=== PATIENT | male | born 1980 | race Caucasian/White ===

== ENCOUNTER 2021-07-24 14:36 | Emergency (ER) | payer BC, SELFPAY ==
[2021-07-24 15:15] VITALS: PULSE 106; RESP 22; TEMP 37.4; O2SAT 100; BMI 16.5
--- NOTE | 2021-07-24 15:48 | HMH.EDUTC ---
[facility] Disposition Clinical Impression: Sinusitis Qualifiers: Sinusitis location: unspecified location Chronicity: unspecified Qualified Code(s): J32.9 - Chronic sinusitis, unspecified Disposition: Home, Self-Care Condition on Discharge: Good Instructions: Sinusitis, DI for Sinusitis, DI for COVID-19 (Suspected or Confirmed ), Preventing the Spread of Coronavirus Discharge Instructions Additional Instructions: *Monitor Temp, Over the counter Motrin or Tylenol as directed/as needed Tylenol every 4 hours and Motrin every 6 hours (as long as your family doctor has told you that you can take it) for fever or pain. and straight to ER if unable to lower temp less than 101.0 after medication given *Warm salt water gargles may help to soothe the throat *Throat Lozenges *Warm fluids like tea with honey may help to soothe the throat *Sleep elevated *Humidifier/Vaporizer *Flonase 2 sprays in each nostril daily but be aware that it may take 2-3 days before you notice improvement Follow up IMMEDIATELY for new or worsening symptoms or no Noticeable improvement over the next 48-72 hours. 911 for difficulty breathing or swallowing You were tested for today for COVID19 your test result should be back in the next 24-48 hours, you may check your results on the [facility] My health portal if you have trouble logging on or seeing your results you may call You was given a handout with instructions for Self Quarantine and Self isolation for while you wait on test results and what to do if they are positive If you are positive the Health Dept will be contacting you also Make sure to take your Vitamins Vit. C Vit D and Zinc if you can take them Prescriptions: Fluticasone Propionate [Flonase 50mcg nasal spray 16gm] 1 spr NS DAILY #1 each Transmission Status: Pending to [facility] methylPREDNISolone [Medrol 4mg tab] 4 mg PO DIRECTED #21 tab Transmission Status: Pending to [facility] Azithromycin [Z-Charlie 250mg Tab] 250 mg PO DIRECTED #6 tab Transmission Status: Pending to [facility] Referrals: Karl Davis MD [Primary Care Provider] - As needed Forms: Work/School Release Time of Disposition: 15:52 Medical Decision Making - Juan Inquiry Pt receiving controlled substance: No Juan was queried for this patient: No Vital Signs: 07/24/21 15:15 Temperature 99.4 F Temperature Source Oral Pulse Rate [Right] 106 H Respiratory Rate 22 02 Sat by Pulse Oximetry 100 Oxygen Delivery Method Room Air Orders (Tests/Meds): ORDERS Category Date Time Status Covid-19 Nasal PCR ([facility]) Routine Lab 07/24/21 15:15 Received [facility] HPI - General Stated complaint: chills fever aches congestion smell of metal Time Seen by Provider: 07/24/21 15:48 Mode of Arrival: Ambulatory Source of Information: Patient Limitations: No Limitations Description of Symptoms (Recalled from Triage Doc. by RN): PATIENT C/O CHILLS, BODY ACHES, CONGESTION HEENT Symptoms (Recalled from RN notes): No Resp Symptoms (Recalled from RN notes): No Skin Symptoms (Recalled from RN notes): No MS Symptoms (Recalled from RN notes): No Functional Status (Recalled from RN notes): WNL - History of Present Illness Provider Complaint: Patient states that he has been having body aches, chills, headache sinus pain and pressure along with scratchy irritated throat State that today he was feeling worse and felt like the pressure was getting worse behind his eyes so he came in to get checked - Related Data Previous Rx's Medication Instructions Recorded Azithromycin [Z-Charlie 250mg Tab] 250 mg PO DIRECTED #6 tab 07/24/21 Fluticasone Propionate [Flonase 1 spr NS DAILY #1 each 07/24/21 50mcg nasal spray 16gm] methylPREDNISolone [Medrol 4mg 4 mg PO DIRECTED #21 tab 07/24/21 tab] Allergies Allergy/AdvReac Type Severity Reaction Status Date / Time No Known Allergies Allergy Verified 07/24/21 15:41 - Worker's Comp Is this a
[2021-07-24 15:51] VITALS: BP 0/0; PULSE 106; RESP 22; TEMP 37.4; O2SAT 100
== END 2021-07-24 16:01 | disposition home or self-care (01) ==
PROVIDERS: Emergency Provider Nurse Practitioner; PCP Family Medicine
DX: U07.1 COVID-19 (principal); J32.9 Chronic sinusitis, unspecified
CPT/HCPCS: 99202; C9803; G0463; U0003; U0005

== ENCOUNTER → 2022-12-18 11:00 | Outpatient (CLI) | payer BC, SELFPAY ==
[2022-12-18 11:50] LABS: Basophils # 0.1 K/mm3 (0-0.2); Basophils % 0.9 % (0.1-2.0); Eosinophils # 0.1 K/mm3 (0.0-0.4); Eosinophils % 2.2 % (0.1-12.0); Hematocrit 47.3 % (42.0-52.0); Hemoglobin 14.9 g/dL (14.1-18.0); Lymphocytes % 37.7 % (10-50); Mean Corpuscular HGB Conc 31.4 g/dL (31.8-35.4); Mean Corpuscular Hemoglobin 28.2 pg (27.0-31.2); Mean Corpuscular Volume 89.6 fl (80-94); Mean Platelet Volume 7.2 fl (7.4-10.4); Monocytes # 0.3 K/mm3 (0.1-1.0); Monocytes % 6.4 % (1.7-9.3); Neutrophils # 2.9 K/mm3 (1.8-7.8); Neutrophils % 52.9 % (37.0-80.0); Platelet Count 192 K/mm3 (142-424); Red Blood Count 5.28 M/mm3 (4.60-6.20); Red Cell Distribution Width 13.1 % (11.5-17.5); White Blood Count 5.4 K/mm3 (4.8-10.8)
[2022-12-18 12:56] LABS: Anion Gap 15.1 mEq/L (5-15); Blood Urea Nitrogen 17 mg/dl (9-20); Calcium 9.1 mg/dl (8.4-10.2); Carbon Dioxide 21 mmol/L (22.0-30.0); Chloride 109 mmol/L (98-107); Estimated Glomerular Filt Rate 107 ml/min (>60); GFR (African American) 130 ML/MIN (>60); Glucose 116 mg/dl (74-100); Potassium 4.1 mmoL/L (3.5-5.1); Sodium 141 mmol/L (136-145)
== END ==
PROVIDERS: PCP Family Medicine; Visit Provider Surgery
DX: K60.3 Anal fistula (principal)
CPT/HCPCS: 36415; 80048; 85025

== ENCOUNTER 2022-12-24 09:06 | Day surgery (SDC) | payer BC, SELFPAY ==
[2022-12-24] VITALS (11 sets, daily range): BP systolic 123–155; BP diastolic 80–98; PULSE 73–93; RESP 16–18; TEMP 36.1–43; O2SAT 93–99; BMI 32.5
--- NOTE | 2022-12-24 10:24 | P.PN_ITS ---
[facility] Disclaimer: The information contained in this section may have been updated after the patient was seen, as this information can be updated by other users. 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 Allergies Family History Other Family history of cancer Family history of myocardial infarction Family history of stroke Social History Smoking Status: Former smoker alcohol intake: never substance use type: marijuana current occupational status: employed Travel in the last 8 weeks: None [facility] Anesthesia Checklist Patient Identification Patient Identification: Arm Band and Verbal (Name & ) Structural Data Admitted From: Home Planned Operative Procedure/s: EUA Consent for Planned Operative Procedure(s) Verified: Yes NPO Status Verified Time NPO: 00:00 Additional verifications Anesthesia Reactions: No Hx Blood Transfusions: No Airway Assessment C-Spine Mobility Assessed: Yes TMJ Mobility Assessed: Yes Dentition: Good Dentition Neurological Assessment Level of Consciousness: Awake Hx Seizures: No Numbness or tingling in extremities: No Anesthesia Plan Anesthesia Risk discussed: Yes Anesthesia Plan: Verified ASA Class: I Anesthesia Type: General
--- NOTE | 2022-12-24 11:44 | EXP.OP.NOTE ---
Date of procedure: 12/24/22 Pre-op Diagnosis:: Anal fistula Post-op Diagnosis:: Same Procedure performed:: Exam under anesthesia Subcutaneous anal fistulotomy Surgeon:: Damon Best MD [employer] REPRESENTATIVE:: Chaim Ledbetter Anesthesia: LMA Estimated blood loss (mL): 10 Clinical Note:: Patient presents for exam under anesthesia with possible fistulotomy. He is a pleasant 42-year-old male referred by Tashi Kraft MD for rectal pain/ulcer.? Patient describes developing a boil in 2013.? This sounds potentially consistent with perianal abscess.? He performed self incision and drainage.? Subsequently he states that he has occasional buildup and spontaneous drainage of often bloody fluid.? If he contracts his gluteal muscles sometimes there is some drainage.? This seems to be worse in the summer months when he has some excessive heat and sweatiness.? 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 Patient was seen in the office and examination was consistent with probable perianal fistula. Options were discussed with the patient. Plan was made for exam under anesthesia with possible fistulotomy versus potential need for seton placement. Operative findings:: He had a short tract subcutaneous anal fistula. External opening was minuscule. Internal anal opening was more prominent. Operative note:: Patient was taken to the operating room. He was given preoperative intravenous antibiotics. In the operating room he was placed in the supine position. General anesthesia was induced via LMA. He was positioned in modified lithotomy position. The area was prepped and draped in standard surgical fashion. Digital examination was performed which revealed palpable internal anal papilla consistent with likely internal opening. [place] anoscope was inserted. There were findings consistent with the internal opening. In the right lateral location at the site where he occasionally has drainage probing was performed but there was no successful probing of external fistula opening as it appeared to be extremely small. Probe was then used to probe the internal opening. There was superficial subcutaneous tracking to the region of what appeared to be the external opening. This was then removed with electrocautery. The fistula tract was limited and subcutaneous. Tract was debrided somewhat with small curette. It was cauterized. There was good hemostasis. Rolled Gelfoam soaked in topical anesthetic was inserted into the anal canal after injection of local anesthetic. Absorbent pad was applied. Condition: stable Disposition: PACU Complications:: None immediately
--- NOTE | 2022-12-24 11:54 | EXP.ANES.I ---
[facility] Anesthesia Record Part I Anesthesia Record I Intake, IV Amount: 500 Estimated blood loss (mL): 20 Urine output (mL): 0 Blood Pressure: 134/81 SaO2: 93 Pulse Rate: 88 Respiratory Rate: 18 Temperature: 97.2 F Patient is:: Drowsy, Mask O2 and Stable Stable to PACU at:: 11:52
--- NOTE | 2022-12-24 12:35 | P.PNANES_ITS ---
[facility] Anesthesia Record Part II Anesthesia Record Part II Discharge Time: 12:22 Destination: Surgical Day Care (OP Surgery) PACU nurse assessment reviewed?: Yes Patient Condition:: Good Anesthesia Complications:: None Swallowing reflex intact?: Yes Cyanosis?: No Blood Pressure: 133/91 Pulse Rate: 86 Temperature: 97.2 F Mental Status: Alert & Oriented Pain level:: 0 Nausea and/or vomitting:: None Intake, IV Amount: 0
--- NOTE | 2022-12-24 12:56 | SUR.PHASEII ---
pt has internal packing from surgery. no drainage noted
== END 2022-12-24 12:57 | disposition home or self-care (01) ==
PROVIDERS: PCP Family Medicine; Visit Provider Surgery
PROC: (CPT 46270; principal; 2022-12-24 12:45)
DX: K60.3 Anal fistula (principal)
CPT/HCPCS: 46270; 96374; J2405

== ENCOUNTER 2023-09-19 11:35 | Outpatient (CLI) | payer BC, SELFPAY ==
[2023-09-19 12:04] LABS: Basophils # 0.1 K/mm3 (0-0.2); Eosinophils # 0.1 K/mm3 (0.0-0.4); Eosinophils % 2.1 % (0.1-12.0); Hematocrit 48.1 % (42.0-52.0); Hemoglobin 16.2 g/dL (14.1-18.0); Lymphocytes # 2.6 K/mm3 (0.7-4.5); Lymphocytes % 40.6 % (10-50); Mean Corpuscular HGB Conc 33.7 g/dL (31.8-35.4); Mean Corpuscular Hemoglobin 30.3 pg (27.0-31.2); Mean Corpuscular Volume 89.9 fl (80-94); Mean Platelet Volume 8.5 fl (7.4-10.4); Monocytes # 0.5 K/mm3 (0.1-1.0); Monocytes % 7.6 % (1.7-9.3); Neutrophils # 3.1 K/mm3 (1.8-7.8); Neutrophils % 48.7 % (37.0-80.0); Platelet Count 212 K/mm3 (142-424); Red Blood Count 5.35 M/mm3 (4.60-6.20); Red Cell Distribution Width 12.9 % (11.5-17.5); White Blood Count 6.3 K/mm3 (4.8-10.8)
[2023-09-19 12:31] LABS: Anion Gap 14.5 mEq/L (5-15); Blood Urea Nitrogen 19 mg/dl (9-20); Calcium 9.1 mg/dl (8.4-10.2); Carbon Dioxide 18 mmol/L (22.0-30.0); Chloride 109 mmol/L (98-107); Estimated Glomerular Filt Rate 107 ml/min (>60); GFR (African American) 129 ML/MIN (>60); Glucose 101 mg/dl (74-100); Potassium 4.5 mmoL/L (3.5-5.1); Sodium 137 mmol/L (136-145)
== END 2023-09-19 23:59 ==
LOC: LAB 11:35
PROVIDERS: PCP Family Medicine; Visit Provider Surgery
DX: K60.3 Anal fistula (principal)
CPT/HCPCS: 36415; 80048; 85025

== ENCOUNTER 2023-09-23 10:27 | Day surgery (SDC) | payer BC, SELFPAY ==
[2023-09-19 14:00] VITALS: BMI 30.8
[2023-09-23] VITALS (8 sets, daily range): BP systolic 113–162; BP diastolic 53–98; PULSE 63–80; RESP 12–18; TEMP 36.4–36.6; O2SAT 93–100
[2023-09-23] MEDS: LACTATED RINGERS 1000ML 1,000 ML 25 ML IV (11:18)
--- NOTE | 2023-09-23 13:52 | P.PNANES_ITS ---
[facility] Disclaimer: The information contained in this section may have been updated after the patient was seen, as this information can be updated by other users. 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 Allergies Surgical History History of rectal surgery Family History Other Family history of cancer Family history of myocardial infarction Family history of stroke Social History Smoking Status: Former smoker tobacco type: e-cigarettes alcohol intake: never substance use type: marijuana current occupational status: employed Travel in the last 8 weeks: None [facility] Anesthesia Checklist Patient Identification Patient Identification: Arm Band and Verbal (Name & ) Structural Data Admitted From: Home Planned Operative Procedure/s: Anal fissurotomy Consent for Planned Operative Procedure(s) Verified: Yes NPO Status Verified Time NPO: 10:15 (Sip of milk) Additional verifications Anesthesia Reactions: No Hx Blood Transfusions: No Blood Transfusion Reaction: No Airway Assessment Mallampati Score:: Class II C-Spine Mobility Assessed: Yes TMJ Mobility Assessed: Yes Dentition: Good Dentition Neurological Assessment Level of Consciousness: Awake Hx Seizures: No Numbness or tingling in extremities: No Anesthesia Plan Anesthesia Risk discussed: Yes Anesthesia Plan: Verified ASA Class: II Anesthesia Type: General
[2023-09-23] MEDS: AMPICILLIN SODIUM/SULBACTAM 3 GM in 0.9 % SODIUM CHLORIDE 100 ML IV (14:20)
--- NOTE | 2023-09-23 15:34 | P.PNANES_ITS ---
[facility] Anesthesia Record Part I Anesthesia Record I Intake, IV Amount: 1,000 Hydration: Adequate Estimated blood loss (mL): 25 Urine output (mL): 0 Blood Pressure: 113/72 SaO2: 94 Pulse Rate: 75 Airway Patency: Patent Respiratory Rate: 12 Temperature: 97.5 F Patient is:: Awake and Stable Stable to PACU at:: 15:30
--- NOTE | 2023-09-23 15:35 | P.OP_ITS ---
Date of procedure: 09/23/23 Pre-op Diagnosis:: Anal fistula Post-op Diagnosis:: Same Procedure performed:: Exam under anesthesia with anal seton placement Surgeon:: Damon Best MD Anesthesia: LMA Estimated blood loss (mL): 15 Clinical Note:: Patient presents for planned fistula surgery. He is a 43-year-old male whose primary care provider is Dr. Tashi Kraft. He was initially seen as a surgical consultation in December 2022. He states that in 2013 he had developed a boil at the anal area. This sounds to be potentially consistent with perianal abscess. He performs self incision and drainage at his home. Subsequently he has had ongoing issues where he has occasional buildup and spontaneous drainage of often bloody fluid. He states that this seems to be worse in the summer months. He had been seen in his primary care provider's office at that time and no external anal pathology was identifiable. After he was seen as a surgical consultation given the symptoms it was felt that he likely had an anal fistula. Plan was made for exam under anesthesia with possible fistulotomy. He was taken to the operating room and thorough examination was performed on 12/24/2022. Ultimately there was a palpable internal anal opening and bivalve anoscope was inserted. It appears as though he had an internal opening actually in the right lateral location tracking laterally to a punctate subcutaneous opening on the perianal skin. This was probed and there was a tract which was opened. He was seen back in the office regularly following this and initially had resolution of his symptoms. However his symptoms recurred. Subsequent follow-up in the office actually revealed what appeared to be a left anterolateral punctate perianal opening. He has had persistent symptoms and discussion was held regarding possible repeat exam under anesthesia as he may have more of a complex fistula or alternate tracking. He wished to wait until the beginning of the year. He states that he has had ongoing symptoms and even has had issues where he occasionally feels like he has flatulence passed through the opening. In the office he was found to have a tiny dimpling in the left anterior location likely consistent with fistula opening. Plan was made to proceed with exam under anesthesia with possible subcutaneous fistulotomy versus seton placement if more complex fistula was found. Operative findings:: He had findings of left anterior intersphincteric fistula. Operative note:: Consent was obtained and patient was taken the operating room. He was positi oned in supine position. General anesthesia was induced. He was then positioned in lithotomy position. Perineum was prepped and draped in the standard surgical fashion. Visual examination revealed scarring in the left anterior location. [place] anoscope was inserted. Liquid stool was suctioned free. Small probe was used to probe the apparent external fistula opening. Tracking was somewhat initially difficult to discern but this appeared to track as an intersphincteric fistula to submucosal internal opening. Probe was visualized transanally with a thin layer of transparent mucosa which was incised with electrocautery. Thorough inspection was carried out and this did seem to be an intersphincteric fistula. Plan was made to not perform fistulotomy due to this fact. Using the blunt probe with I let a couple of #5 Ethibond sutures were passed through the fistula tract. There was secured to 1 another somewhat snugly but not tight with 3 oh Surgilon ties. There is some minor oozing from the internal opening. Topical hemostatic Surgicel was initially held in place for several minutes resulting in partial hemostasis. Ultimately some use of electrocautery was used for good hemostasis. Anorectal vault was irrigated. Local anesthetic was infiltrated. Gelfoam roll soaked in topical hemostatic was inserted into the anorectal canal. Seton sutures were cut to the appropriate length. Absorbable dressing was applied. Condition: stable Disposition: PACU Complications:: None immediately apparent
--- NOTE | 2023-09-25 11:06 | EXP.ANES.II ---
[facility] Anesthesia Record Part II Anesthesia Record Part II Discharge Time: 16:00 Destination: Surgical Day Care (OP Surgery) PACU nurse assessment reviewed?: Yes Patient Condition:: Good Anesthesia Complications:: None Swallowing reflex intact?: Yes Airway Patency: Patent Cyanosis?: No Blood Pressure: 162/92 SaO2: 100 Respiratory Rate: 17 Pulse Rate: 71 Temperature: 97.8 F Mental Status: Alert & Oriented Pain level:: 0 Nausea and/or vomitting:: None Intake, IV Amount: 0 Hydration: Adequate
[2023-09-25 11:07] VITALS: BP 162/92; PULSE 71; RESP 17; TEMP 36.6; O2SAT 100
== END 2023-09-23 16:19 | disposition home or self-care (01) ==
PROVIDERS: PCP Family Medicine; Visit Provider Surgery
PROC: (CPT 46020; principal; 2023-09-23 12:00)
DX: K60.3 Anal fistula (principal)
CPT/HCPCS: 46020; 96374; J0131; J2405

== ENCOUNTER 2024-09-05 18:10 | Emergency (ER) | payer BC, SELFPAY ==
[2024-09-05 19:35] VITALS: BP 132/91; PULSE 104; RESP 18; TEMP 36.7; O2SAT 100; BMI 29.3
--- NOTE | 2024-09-05 19:55 | EXP.UTC ---
Discharge Plan Disposition Patient Disposition: Home, Self-Care Condition: Good Referrals Follow up/Referrals: Karl Davis MD [Primary Care Provider] - See instructions Activity Restrictions/Add. Instructions Additional Instructions/Restrictions: No sign of a bacterial infection. Likely viral. Viruses can take 7-14 days to run their course. Nasal saline and bulb syringe or nose Susy to remove nasal drainage to help with nasal congestion. Hard to eat, drink, sleep with nasal congestion so important to keep this cleaned out. Monitor temp. Tylenol or Motrin as needed for pain or fever Encourage fluids, water, Gatorade, Powerade, Pedialyte if infant/toddler/child Warm salt water gargles Warm fluids Sore throat lozenges Sleep elevated Humidifier/vaporizer Follow-up immediately for new or worsening symptoms or no noticeable improvement over the next 48-72 hours. Clinical Impressions Clinical Impression: Upper respiratory infection, viral Instructions Patient Instructions: DI for Viral Upper Respiratory Infection -- Adult Print Language Print Language: [place] Discharge ED Provider: Daniel [facility] [place] General Stated complaint: Body aches, Mode of Arrival: Ambulatory Source of Information: Patient Limitations: No Limitations Time Seen by Provider: 09/05/24 19:34 Description of Symptoms (Recalled from Triage Doc. by RN): PATIENT C/O BODY ACHES AND FEELING LIGHT-HEADED HEENT Symptoms (Recalled from RN notes): No Resp Symptoms (Recalled from RN notes): No Skin Symptoms (Recalled from RN notes): No MS Symptoms (Recalled from RN notes): No Functional Status (Recalled from RN notes): WNL History of Present Illness Provider Complaint: 44-year-old male presents for complaints of bodyaches, nasal congestion, sore throat, and feeling lightheaded with cough. Daughter has same symptoms Related Data Allergies Allergy/AdvReac Type Severity Reaction Status Date / Time No Known Allergies Allergy Verified 07/28/24 08:51 Worker's Comp Is this a Worker's Comp case?: No [facility] Disclaimer: The information contained in this section may have been updated after the patient was seen, as this information can be updated by other users. 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) Smoking Status: Former smoker tobacco type: e-cigarettes alcohol intake: never substance use type: marijuana current occupational status: employed Travel in the last 8 weeks: None Have you lived/traveled outside [place] in past 30 days?: No Contact w/someone who lives/traveled outside US past 30 days?: No Exposure to someone with infectious disease in past 14 days?: No Do you have a fever (greater than 100.4 F or 38 C)?: No Have you tested positive for COVID-19: No Exposed to someone with COVID-19 in past 14 days?: No Do you have a sore throat?: No Do you have a cough?: No Do you have any weakness?: No Do you have any diarrhea?: No Are you experiencing any unusual bleeding?: No Do you have any muscle aches/pain?: Yes Do you have any abdominal pain?: No Are you experiencing loss of taste or smell?: No ROS Obtained: Yes Systems reviewed as appropriate & no additional complaints except as documented Physical Exam General General appearance: alert and in no apparent distress Eye Eye exam: Present normal appearance ENT ENT exam: Present normal exam, normal oropharynx, mucous membranes moist and TM's normal bilaterally Respiratory Respiratory exam: Present normal lung sounds bilaterally Cardiovascular Cardiovascular exam: Present regular rate and normal rhythm Neurological Exam Neurological exam: Present alert, oriented X3 and CN II-XII intact Skin Skin exam: Present warm and intact Medical Decision Making Medical Records Medical records reviewed: Yes I reviewed the patient's medical records. Screening: Per USPSTF and CDC recommendations, given the prevalence of disease in our region, it is our hospital?s policy to screen for HIV and viral Hepatitis for all patients aged 18 and over and those with ongoing risk factors. Juan Inquiry Pt receiving controlled substance: No Juan was queried for this patient: No Vital Signs: 09/05/24 19:35 Temperature 98.1 F Temperature Source Oral Pulse Rate [Left Brachial] 104 H Respiratory Rate 18 Blood Pressure [Left Arm] 132/91 H Blood Pressure Mean [Left Arm] 104 Blood Pressure Source [Left Arm] Automatic Cuff Blood Pressure Position [Left Arm] Sitting 02 Sat by Pulse Oximetry 100 Oxygen Delivery Method Room Air Lab Data Lab results reviewed: Yes I reviewed the patient's lab results.
[2024-09-05 19:59] VITALS: BP 132/91; PULSE 104; RESP 18; TEMP 36.7; O2SAT 100
[2024-09-05 20:21] LABS: UTC Influenza A Antigen Negative (Negative); UTC Influenza B Antigen Negative (Negative)
== END 2024-09-05 20:10 | disposition home or self-care (01) ==
PROVIDERS: Emergency Provider Nurse Practitioner Family; PCP Family Medicine
DX: J06.9 Acute upper respiratory infection, unspecified (principal)
CPT/HCPCS: 87635; 87804; 99213; G0381